=== PATIENT | female | born 1960 | race Caucasian/White ===

== ENCOUNTER → 2016-07-16 | Outpatient (CLI) | payer BC ==
[~2016-07-16] MED LIST: CLR10 PO; PHEN1MIS PO; PRLSR20 PO
[2016-07-16 12:30] LABS: CHOLESTEROL/HDL RATIO 2.2
[2016-07-16 13:08] LABS: ESTIMATED AVERAGE GLUCOSE 103 mg/dl; HA1C FLAG Normal (Normal)
== END | disposition home or self-care (01) ==
LOC: C.LAB1850 10:13
PROVIDERS: ATTEND Family Medicine
DX: K21.0 Gastro-esophageal reflux disease with esophagitis (principal); K22.70 Barrett's esophagus without dysplasia; Z13.220 Encounter for screening for lipoid disorders; Z13.1 Encounter for screening for diabetes mellitus